=== PATIENT | male | born 1965 | race American Indian/Alaskan Native ===

== ENCOUNTER 2019-03-16 14:12 | Emergency (ER) | payer OTHER ==
[2019-03-16 14:25] VITALS: BP 111/65
--- NOTE | 2019-03-16 14:26 | Emergency Department Report ---
Chief Complaint: Medical Clearance Stated Complaint: SHAKING/CANT SLEEP Time Seen by Provider: 03/16/19 14:23 - HPI History of Present Illness: Pt states he has diarrhea that began a couple days ago denies any vomiting has abd bloating, no abd pain no fever states he was on abx last week for bronchitis, states he only took 3 days worth no sick contacts no recent travel no water from a different source no PMHx +smoker denies drug use MSE screening note: Focused history and physical exam performed. Due to findings the following was ordered: labs ED Disposition for MSE Condition: Stable
[2019-03-16 14:50] LABS: Basophils % (Auto) 0.6 % (0.0-1.8); Eosinophils # (Auto) 0.2 K/mm3 (0.0-0.4); Eosinophils % (Auto) 4.7 % (0.0-4.3); Hematocrit 42.9 % (35.5-45.6); Lymphocytes # (Auto) 1.3 K/mm3 (1.2-5.4); Lymphocytes % (Auto) 25.7 % (13.4-35.0); Mean Corpuscular HGB Conc 33 % (32-34); Mean Corpuscular Volume 80 fl (84-94); Monocytes # (Auto) 0.3 K/mm3 (0.0-0.8); Monocytes % (Auto) 6.1 % (0.0-7.3); Platelet Count 156 K/mm3 (140-440); Red Blood Count 5.39 M/mm3 (3.65-5.03); Red Cell Distribution Width 16.6 % (13.2-15.2)
[2019-03-16 15:12] LABS: Alanine Aminotransferase 18 units/L (7-56); Albumin 3.6 g/dL (3.9-5); BUN/Creatinine Ratio 7; Blood Urea Nitrogen 8 mg/dL (9-20); Calcium 8.4 mg/dL (8.4-10.2); Hemolysis Index 18
[2019-03-16] MEDS ORDERED: NACL 0.9% 1000 ML 1,000 ML IV ONE (15:50)
--- NOTE | 2019-03-16 16:13 | XRay Report ---
PROCEDURE: XR ABD SERIES W CXR 1V TECHNIQUE: Abdominal series complete, including supine and upright AP views of the abdomen and front al chest. HISTORY: n/v COMPARISONS: None . FINDINGS: Heart: Normal. Mediastinum/Vessels: Normal. Lungs/Pleural space: Normal. Bowel gas pattern: Nonobstructive . Masses or calcifications: None . Bony structures: No acute osseous abnormality . Other: No free intraperitoneal air . IMPRESSION: No acute abnormality. This document is electronically signed by Dania Soni MD., Mar 16 2019 04:11:55 PM ET
[2019-03-16 16:55] LABS: Bilirubin,Urine NEG (Negative); Blood,Urine NEG (Negative); Color,Urine Yellow (Yellow); Mucus,Urine 1+ /HPF; Protein,Urine <15 mg/dL mg/dL (Negative); Urobilinogen,Urine < 2.0 mg/dL (<2.0)
--- NOTE | 2019-03-16 17:54 | Emergency Department Report ---
ED Anxiety HPI - General Chief Complaint: Medical Clearance Stated Complaint: SHAKING/CANT SLEEP Time Seen by Provider: 03/16/19 14:23 Source: patient Mode of arrival: Ambulatory - History of Present Illness Initial Comments: This is a 53-year-old male nontoxic, well nourished in appearance, no acute signs of distress presents to the ED with c/o of difficulty sleeping and diarr hea 3 days. Patient stated that he has been very stressed due to life events. Patient denies any suicidal or homicidal ideation. Patient denies any chest pain, shortness of breath, nausea, vomiting, abdominal pain, back pain, numbness, tingling, headache or stiff neck. Patient denies any allergies significant past medical history. MD Complaint: anxiety, other (diarrhea) -: days(s) (3) Symptoms: other (diarrhea, unable to sleep) Previous History of Same: Yes Severity: mild Quality: constant Provoking factors: emotional stress Improves With: nothing Worsens With: nothing Associated symptoms: denies other symptoms. denies: chest pain, shortness of breath, palpitations, diaphoresis, confusion, cough, fever/chills, headaches, anorexia, malaise, nausea/vomiting, rash, seizure, syncope, weakness - Related Data Allergies/Adverse Reactions: Allergies Allergy/AdvReac Type Severity Reaction Status Date / Time No Known Allergies Allergy Unverified 03/16/19 14:15 ED Review of Systems ROS: Stated complaint: SHAKING/CANT SLEEP Other details as noted in HPI Constitutional: denies: chills, fever Eyes: denies: eye pain, eye discharge, vision change ENT: denies: ear pain, throat pain Respiratory: denies: cough, shortness of breath, wheezing Cardiovascular: denies: chest pain, palpitations Endocrine: no symptoms reported Gastrointestinal: diarrhea. denies: abdominal pain, nausea, vomiting Genitourinary: denies: urgency, dysuria Musculoskeletal: denies: back pain, joint swelling, arthralgia Skin: denies: rash, lesions Neurological: denies: headache, weakness, paresthesias Psychiatric: denies: anxiety, depression, homicidal thoughts, suicidal thoughts Hematological/Lymphatic: denies: easy bleeding, easy bruising ED Past Medical Hx - Past Medical History Previous Medical History?: No - Surgical History Past Surgical History?: No - Social History Smoking Status: Current Every Day Smoker Substance Use Type: Alcohol, Marijuana ED Physical Exam - General Limitations: No Limitations General appearance: alert, in no apparent distress - Head Head exam: Present: atraumatic, normocephalic - Eye Eye exam: Present: normal appearance, PERRL, EOMI - Neck Neck exam: Present: normal inspection, full ROM. Absent: tenderness, meningismus, lymphadenopathy - Respiratory Respiratory exam: Present: normal lung sounds bilaterally. Absent: respiratory distress, wheezes, rales, rhonchi, stridor, chest wall tenderness, accessory muscle use, decreased breath sounds, prolonged expiratory - Cardiovascular Cardiovascular Exam: Present: regular rate, normal rhythm, normal heart sounds. Absent: bradycardia, tachycardia, irregular rhythm, systolic murmur, diastolic murmur, rubs, gallop - GI/Abdominal GI/Abdominal exam: Present: soft, normal bowel sounds. Absent: distended, tenderness, guarding, rebound, rigid, diminished bowel sounds - Rectal Rectal exam: Present: deferred - Extremities Exam Extremities exam: Present: normal inspection, full ROM - Back Exam Back exam: Present: normal inspection, full ROM. Absent: tenderness, CVA tenderness (R), CVA tenderness (L), muscle spasm, paraspinal tenderness, vertebral tenderness, rash noted - Neurological Exam Neurological exam: Present: alert, oriented X3 - Psychiatric Psychiatric exam: Present: normal affect, normal mood, anxious. Absent: depressed, agitated, flat affect, manic, homicidal ideation, suicidal ideation - Skin Skin exam: Present: warm, dry, intact, normal color. Absent: rash ED Course Vital Signs 03/16/19 14:23 Temperature 98.1 F Pulse Rate 76 Respiratory 20 Rate Blood Pressure 111/65 O2 Sat by Pulse 99 Oximetry - Reevaluation(s) Reevaluation #1: 03/16/19 17:50 Patient is speaking in full sentences with no signs of distress noted. ED Medical Decision Making - Lab Data Result diagrams: 03/16/19 14:35 03/16/19 14:35 - Medical Decision Making This is a 53-year-old male that presents with anxiety. Patient is stable and was examined by me. Labs are unremarkable. X-ray of abdomen has been obtained and dictated by radiologist unremarkable. Patient is notified of the results with no questions noted by the patient. The patient did receive 1 L of normal saline. Patient is hemodynamically stable. No SI or HI. Patient was referred to Follow-up with a primary care doctor in 3-5 days or if symptoms worsen and continue return to emergency room as soon as possible. At time of discharge, the patient does not seem toxic or ill in appearance. No acute signs of distress noted. Patient agrees to discharge treatment plan of care. No further questions noted by the patient. Critical care attestation.: If time is entered above; I have spent that time in minutes in the direct care of this critically ill patient, excluding procedure time. ED Disposition Clinical Impression: Anxiety Disposition: DC-01 TO HOME OR SELFCARE Is pt being admited?: No Does the pt Need Aspirin: No Condition: Stable Instructions: Anxiety (ED) Additional Instructions: Follow-up with a primary care doctor in 3-5 days or if symptoms worsen and continue return to emergency room as soon as possible. Referrals: [facility] MD ROSALINE [Primary Care Provider] - 3-5 Days PRIMARY MD DEREK [Referring] - 3-5 Days ABIGAIL MUSA MD [Staff Physician] - 3-5 Days [facility] [Outside] - 3-5 Days [facility] [Outside] - 3-5 Days
== END 2019-03-16 18:06 | disposition home or self-care (01) ==
LOC: ED 14:12
DX: F41.9 Anxiety disorder, unspecified (principal); F17.200 Nicotine dependence, unspecified, uncomplicated; F12.10 Cannabis abuse, uncomplicated
CPT/HCPCS: 36415; 74022; 80053; 81001; 83690; 85025; J7030; 96360